=== PATIENT | female | born 1945 | race Caucasian/White ===

== ENCOUNTER 2019-02-14 16:00 | Inpatient (IN) | payer MEDICARE ==
[2019-02-14] MEDS ORDERED: SODIUM CHLORIDE 0.9% 500 ML 500 ML IV STA (16:24)
[2019-02-14 16:52] LABS: HCT 47.1 % (34.0-46.0); HGB 14.4 gm/dL (11.4-16.0); Hypochromasia Moderate; MCH 36.8 pg (25.0-35.0); MCHC 30.7 g/dL (31.0-37.0); Macrocytosis Marked; Mean Platelet Volume 8.3; Platelet Count 198 k/uL (150-450); RBC 3.92 m/uL (3.80-5.40); RDW 15.9 % (11.5-15.5); WBC 9.8 k/uL (3.8-10.6)
[2019-02-14] MEDS ORDERED: DILTIAZEM DRIP BOLUS FROM BAG 1 MG SOLN IV ONE (16:57)
[2019-02-14] MEDS ORDERED: HEPARIN SODIUM,PORCINE 5,000 UNIT/ML 1 ML VIAL IV ONE (16:58)
[2019-02-14 17:02] LABS: ALT 48 U/L (9-52); AST 51 U/L (14-36); African American GFR (CKD) >90 (>60 ml/min/1.73 sqM); Albumin 4.4 g/dL (3.5-5.0); Alkaline Phosphatase 92 U/L (38-126); Anion Gap 11 mmol/L; Blood Urea Nitrogen 30 mg/dL (7-17); Calcium 9.3 mg/dL (8.4-10.2); Carbon Dioxide 29 mmol/L (22-30); Chloride 103 mmol/L (98-107); Glucose 158 mg/dL (74-99); Magnesium 1.8 mg/dL (1.6-2.3); Potassium 4.6 mmol/L (3.5-5.1); Sodium 143 mmol/L (137-145); Total Bilirubin 2.5 mg/dL (0.2-1.3); Total Protein 7.6 g/dL (6.3-8.2)
--- NOTE | 2019-02-14 17:02 | ED ---
General Adult HPI - General Chief complaint: Shortness of Breath Stated complaint: Diff Breathing Time Seen by Provider: 02/14/19 16:07 Source: patient, EMS Mode of arrival: EMS Limitations: physical limitation - History of Present Illness Initial comments: Dictation was produced using [employer] dictation software. please excuse any gramm atical, word or spelling errors. Chief Complaint: Patient is 73-year-old female with no significant past medical history presents with dyspnea and palpitations. History of Present Illness: 73-year-old female. She presents today with multiple days of dyspnea. Patient states her symptoms began 3-4 weeks ago. States that she would have increasing duration and symptoms of dyspnea and p alpitations. Patient denies any history of atrial fibrillation. Patient has been noncompliant with her medications. She is supposed to be on what sounds like a rate controlling medication to prevent her heart from working hard. Patient states that her symptoms are worse with exertion. Patient denies and a coagulation medication use. 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 Patient denies any focal neurologic deficits. She does report some mild chest discomfort especially during episodes of these palpitations. Patient denies any blurry chest pain. Denies a history of blood clots. The ROS documented in this emergency department record has been reviewed and confirmed by me. Those systems with pertinent positive or negative responses have been documented in the HPI. All other systems are other negative and/or noncontributory. PHYSICAL EXAM: General Impression: Alert and oriented x3, not in acute distress HEENT: Normocephalic atraumatic, extra-ocular movements intact, pupils equal and reactive to light bilaterally, dry mucous membranes Cardiovascular: Tachycardic, irregularly irregular Chest: Lungs clear to auscultation bilaterally, no rhonchi, no wheeze, no rales Abdomen: Bowel sounds present, abdomen soft, non-tender, non-distended, no organomegaly Musculoskeletal: Pulses present and equal in all extremities, no peripheral edema Motor: no focal deficits noted Neurological: CN II-XII grossly intact, no focal motor or sensory deficits noted Skin: Intact with no visualized rashes Psych: Normal affect and mood ED course:-year-old female presents with chief complaint of shortness of breath and palpitations. EKG was performed immediately showing atrial fibrillation with rapid ventricular rate. Patient has any history of atrial fibrillation she does however report prescription for what is likely a beta dk or other rate controlling medications. Vital signs upon arrival shows heart rate of 147, rest of vital signs within acceptable limits. Patient appears mildly dyspneic. She denies any history of blood clots. Patient denies any symptoms to suggest pulmonary embolus. Chart review was performed showing no previous documentation or nodes. Laboratory evaluation obtained. Cardizem bolus and infusion was ordered for rate control. Patient started on heparin. Laboratory evaluation obtained. CBC is grossly unremarkable. Metabolic panel is negative. Coag panel is unremarkable. Patient is slight troponin elevation of 0.028. Chest x-ray shows mild congestive heart failure with small pleural effusions. Patient's symptomatology is secondary to atrial fibrillation with RVR. Patient reevaluated after Cardizem drip and bolus with improvement of heart rate. Patient's blood pressures are within acceptable limits. She is improved while being on Cardizem. She'll be admitted to cardiac telemetry. Discussed patient case with Dr. Randy koroma so care for this patient. Cardiology to be a consultation. EKG interpretation: Ventricular rate once 65, atrial fibrillation with rapid ventricular response, QS 100, QTC 513. No GA prolongation, no QTC prolongation, no ST or T-wave changes noted. No old EKG for comparison. Overall, this EKG is unremarkable - Related Data Home Medications Medication Instructions Recorded Confirmed Acetaminophen [Tylenol Arthritis] 650 mg PO BID PRN 02/14/19 02/14/19 Aspirin EC [Ecotrin Low Dose] 81 mg PO DAILY 02/14/19 02/14/19 Calcium Carbonate [Calcium] 600 mg PO BID 02/14/19 02/14/19 Multivit with Calcium,Iron,Min 1 tab PO DAILY 02/14/19 02/14/19 [Women's Multivitamin] Allergies Allergy/AdvReac Type Severity Reaction Status Date / Time No Known Allergies Allergy Unverified 02/14/19 16:31 Review of Systems ROS Statement: Those systems with pertinent positive or pertinent negative responses have been documented in the HPI. ROS Other: All systems not noted in ROS Statement are negative. 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] Respiratory 24 24 18 Rate Blood Pressure 115/82 104/69 O2 Sat by Pulse 97 97 Oximetry Medical Decision Making - Lab Data Result diagrams: 02/14/19 16:21 02/14/19 16:21 Lab Results 02/14/19 02/14/19 02/14/19 Range/Units 16:21 16:21 16:21 WBC 9.8 (3.8-10.6) k/uL RBC 3.92 (3.80-5.40) m/uL Hgb 14.4 (11.4-16.0) gm/dL Hct 47.1 H (34.0-46.0) % MCV 120.0 H (80.0-100.0) fL MCH 36.8 H (25.0-35.0) pg MCHC 30.7 L (31.0-37.0) g/dL RDW 15.9 H (11.5-15.5) % Plt Count 198 (150-450) k/uL Neutrophils % (Manual) 78 % Lymphocytes % (Manual) 12 % Monocytes % (Manual) 10 % Neutrophils # (Manual) 7.64 (1.3-7.7) k/uL Lymphocytes # (Manual) 1.18 (1.0-4.8) k/uL Monocytes # (Manual) 0.98 (0-1.0) k/uL Nucleated RBCs 0 (0-0) /100 WBC Manual Slide Review Performed Hypochromasia Moderate Macrocytosis Marked A PT (9.0-12.0) sec INR (<1.2) APTT (22.0-30.0) sec Sodium 143 (137-145) mmol/L Potassium 4.6 (3.5-5.1) mmol/L Chloride 103 (98-107) mmol/L Carbon Dioxide 29 (22-30) mmol/L Anion Gap 11 mmol/L BUN 30 H (7-17) mg/dL Creatinine 0.58 (0.52-1.04) mg/dL Est GFR (CKD-EPI)AfAm >90 (>60 ml/min/1.73 sqM) Est GFR (CKD-EPI)NonAf >90 (>60 ml/min/1.73 sqM) Glucose 158 H (74-99) mg/dL Calcium 9.3 (8.4-10.2) mg/dL Magnesium 1.8 (1.6-2.3) mg/dL Total Bilirubin 2.5 H (0.2-1.3) mg/dL AST 51 H (14-36) U/L ALT 48 (9-52) U/L Alkaline Phosphatase 92 (38-126) U/L Troponin I 0.028 (0.000-0.034) ng/mL Total Protein 7.6 (6.3-8.2) g/dL Albumin 4.4 (3.5-5.0) g/dL TSH 0.916 (0.465-4.680) mIU/L 02/14/19 Range/Units 18:02 WBC (3.8-10.6) k/uL RBC (3.80-5.40) m/uL Hgb (11.4-16.0) gm/dL Hct (34.0-46.0) % MCV (80.0-100.0) fL MCH (25.0-35.0) pg MCHC (31.0-37.0) g/dL RDW (11.5-15.5) % Plt Count (150-450) k/uL Neutrophils % (Manual) % Lymphocytes % (Manual) % Monocytes % (Manual) % Neutrophils # (Manual) (1.3-7.7) k/uL Lymphocytes # (Manual) (1.0-4.8) k/uL Monocytes # (Manual) (0-1.0) k/uL Nucleated RBCs (0-0) /100 WBC Manual Slide Review Hypochromasia Macrocytosis PT 13.1 H (9.0-12.0) sec INR 1.3 H (<1.2) APTT 47.2 H (22.0-30.0) sec Sodium (137-145) mmol/L Potassium (3.5-5.1) mmol/L Chloride (98-107) mmol/L Carbon Dioxide (22-30) mmol/L Anion Gap mmol/L BUN (7-17) mg/dL Creatinine (0.52-1.04) mg/dL Est GFR (CKD-EPI)AfAm (>60 ml/min/1.73 sqM) Est GFR (CKD-EPI)NonAf (>60 ml/min/1.73 sqM) Glucose (74-99) mg/dL Calcium (8.4-10.2) mg/dL Magnesium (1.6-2.3) mg/dL Total Bilirubin (0.2-1.3) mg/dL AST (14-36) U/L ALT (9-52) U/L Alkaline Phosphatase (38-126) U/L Troponin I (0.000-0.034) ng/mL Total Protein (6.3-8.2) g/dL Albumin (3.5-5.0) g/dL TSH (0.465-4.680) mIU/L Disposition Clinical Impression: Atrial fibrillation with RVR Disposition: ADMITTED IP TO THIS HOSP Condition: Fair Referrals: Mariah Zendejas MD [Primary Care Provider] - 1-2 days Decision Time: 19:03
[2019-02-14 17:16] LABS: Lymphocytes # (M) 1.18 k/uL (1.0-4.8); Monocytes # (M) 0.98 k/uL (0-1.0); Neutrophils # (M) 7.64 k/uL (1.3-7.7); Neutrophils % (M) 78 %; Nucleated Red Blood Cells 0 /100 WBC (0-0); Total Cells Counted 100
[2019-02-14] MEDS: DILTIAZEM 125 MG in SODIUM CHLORIDE 0.9% 100 ML IV SCH (17:40)
[2019-02-14] MEDS: HEPARIN SOD,PORK IN 0.45% NACL 25,000 UNIT in 0.45% NACL 1 250ML.BAG IV SCH (17:46)
--- NOTE | 2019-02-14 17:53 | XR ---
EXAMINATION TYPE: XR chest 2V DATE OF EXAM: 02/14/2019 COMPARISON: NONE HISTORY: Dysrhythmia TECHNIQUE: Frontal and lateral views of the chest are obtained. FINDINGS: There is some blunting of the costophrenic angles. Heart is enlarged. There is some pulmon sintia vascular congestion. There are chest leads. IMPRESSION: There is probably Mild congestive heart failure. Small pleural effusions.
[2019-02-14] MEDS ORDERED: ASPIRIN 81 MG PO STA (18:07)
[2019-02-14 18:42] LABS: INR 1.3 (<1.2); Partial Thromboplastin Time 47.2 sec (22.0-30.0); Prothrombin Time 13.1 sec (9.0-12.0)
[2019-02-14] MEDS ORDERED: ACETAMINOPHEN TAB 325 MG TAB PO PRN (19:03)
[2019-02-14] MEDS ORDERED: NALOXONE 0.4 MG/ML 1 ML VIAL IV PRN (19:03)
[2019-02-14] MEDS ORDERED: HYDROcodone/APAP 5-325MG 1 EACH TAB PO PRN (19:03)
[2019-02-14] MEDS ORDERED: ONDANSETRON 4 MG/2 ML VIAL IVP PRN (19:03)
[2019-02-14] MEDS ORDERED: SODIUM CHLORIDE 0.9% 1,000 ML IV SCH (19:15)
[2019-02-14 20:13] LABS: Appearance,Urine Cloudy (Clear); Bacteria,Urine Many /hpf; Bilirubin,Urine 1+ (Negative); Blood,Urine Negative (Negative); Color,Urine Orange; Glucose,Urine (UA) Negative (Negative); Ketones,Urine 1+ (Negative); Leukocyte Esterase,Urine Small (Negative); Mucus,Urine Few /hpf; Nitrite,Urine Positive (Negative); PH, Urine 5.5 (5.0-8.0); Protein,Urine 1+ (Negative); Specific Gravity,Urine 1.029 (1.001-1.035); Squamous Epithelial Cell,Urine 5 /hpf (0-4)
[2019-02-14] MEDS ORDERED: NON-FORMULARY DRUG (Acetaminophen [Tylenol Arthritis] 650 MG) PO PRN (21:52)
[2019-02-14] MEDS ORDERED: TEMAZEPAM 15 MG CAP PO PRN (21:53)
[2019-02-14] MEDS: ALPRAZolam 0.25 MG TAB PO PRN (22:15)
[2019-02-14] MEDS: FUROSEMIDE 10 MG/ML 4 ML VIAL IV SCH (22:24)
[2019-02-15] MEDS: FUROSEMIDE 10 MG/ML 4 ML VIAL IV SCH ×4 (00:29→23:37)
[2019-02-15] MEDS: HEPARIN SODIUM,PORCINE 5,000 UNIT/ML 1 ML VIAL IV PRN ×4 (01:54→23:38)
[2019-02-15] MEDS: DILTIAZEM 125 MG in SODIUM CHLORIDE 0.9% 100 ML IV SCH ×2 (02:14→09:21)
--- NOTE | 2019-02-15 06:00 | HP ---
HISTORY AND PHYSICAL DATE OF SERVICE: 02/14/2019 CHIEF COMPLAINT: Shortness of breath and palpitation. HISTORY OF PRESENT ILLNESS: This 73-year-old woman with a past medical history of multiple medical problems including DJD being followed by Dr. Mariah Zendejas in the outpatient setting was complaining of shortness of breath today. The patient's symptoms began about 3 to 4 weeks ago. The patient also has some palpitations. The patient did not have any history of atrial fibrillation, but the patient had episodes of apparent stroke, which the patient describes as a palpitations and some extreme shortness of breath or sudden onset which lasted overnight a few weeks ago. Otherwise, the patient was apparently not very compliant with the medications and the patient was seen by Cardiology about 2 years ago and apparently because medicines made her sick and the patient stopped the medication. Otherwise, there is no history of any fever, rigors. No history of headache, loss of consciousness or seizures. EKG showed atrial fibrillation with fast ventricular rate. Cardizem was initiated, Patient admitted for further evaluation and treatment. PAST MEDICAL HISTORY: History of atrial fibrillation, history of DJD. MEDICATIONS: Home medications prior to admission include: 1. Multivitamin 1 p.o. daily. 2. Calcium 600 mg p.o. b.i.d. 3. Ecotrin 81 mg daily. 4. Tylenol 650 mg p.o. b.i.d. ALLERGIES: Allergies are none. FAMILY HISTORY: No history of heart disease or strokes in the family. SOCIAL HISTORY: No history of current smoking or alcohol intake. REVIEW OF SYSTEMS: ENT: Diminished hearing and diminished vision. CARDIOVASCULAR SYSTEM: As mentioned earlier. RESPIRATORY SYSTEM: As mentioned earlier. GI: No nausea. : No dysuria. NERVOUS SYSTEM: No numbness or weakness. ALLERGY/IMMUNOLOGY: No asthma. MUSCULOSKELETAL: As mentioned earlier. HEMATOLOGY/ONCOLOGY: No history of anemia. ENDOCRINE: No history of diabetes or hypothyroidism. CONSTITUTIONAL: As mentioned earlier. DERMATOLOGY: Negative. RHEUMATOLOGY: Negative. PSYCHIATRY: As mentioned earlier. PHYSICAL EXAMINATION: The patient is alert and oriented x3. Pulse is 133, irregular, tachycardic, respiration 18, temperature normal, pulse ox 97% on 4 L nasal cannula and blood pressure is 104/69. HEENT: Conjunctivae normal. Oral mucosa moist. NECK: No jugular venous distention. CARDIOVASCULAR: S1, S2, tachycardia, irregular. RESPIRATORY: Breath sounds diminished at the bases. Scattered rhonchi and crackles. Breathing efforts increased. ABDOMEN: Soft, nontender. No mass palpable. Obese. LEGS: No edema, no swelling. NERVOUS SYSTEM: Higher function as mentioned earlier. Moves all 4 limbs. No focal motor deficits. LYMPHATICS: No lymphadenopathy of the neck, axillae or groin. SKIN: No ulcer, rash or bleeding. JOINTS: No active deforming arthropathy. LABS: WBC 9.8, hemoglobin 14.4, MCV 120, Sodium 143, potassium 4.6. Glucose 158. Bilirubin is 2.5, AST is 51. UA is possible UTI. ASSESSMENT: 1. Atrial fibrillation with fast ventricular rate. 2. Congestive heart failure acute exacerbation, ejection fraction unknown. 3. History of noncompliance. 4. Macrocytosis. 5. Increased AST. 6. Increased total bilirubin. 7. Possible urinary tract infection. 8. Obesity with body mass index of 48.4. 9. History of degenerative joint disease. RECOMMENDATIONS AND DISCUSSION: This 73-year-old woman presented with multiple complex medical issues. Will monitor the patient closely. Continue the current medications. Continue symptomatic treatment. Will recommend continue with Cardizem drip. I would also recommend IV Lasix for diuresis. The 2D echo with Doppler. Cardiology consultation. Importance of compliance is stressed and a NT proBNP also will be checked. Troponin 0.028. The initial EKG showed atrial fibrillation with fast ventricular rate also. Obtain old records at this time. Overall prognosis guarded because of multiple complex medical issues. Further recommendations to follow. I discussed with the patient and family, understands and agrees. A copy of dictation forwarded to Dr. Mariah Zendejas who is the primary physician. MMODL / IJN: [id number] / MTDD
[2019-02-15] MEDS: PANTOPRAZOLE 40 MG TABLET PO SCH (06:46)
[2019-02-15] MEDS: ASPIRIN 81 MG PO SCH (08:05)
[2019-02-15] MEDS: CALCIUM CARBONATE 500 MG CHEWABLE PO SCH ×2 (08:05→21:35)
[2019-02-15] MEDS: MULTIVITAMINS, THERA 1 EACH TAB PO SCH (08:05)
--- NOTE | 2019-02-15 08:15 | XR ---
EXAMINATION TYPE: XR chest 1V portable DATE OF EXAM: 02/15/2019 COMPARISON: Prior chest x-ray 02/14/2019 HISTORY: Dyspnea and wheezing TECHNIQUE: Single frontal view of the chest is obtained. FINDINGS: The heart is enlarged. Aorta is dense. No pneumothorax or pleural effusion. Patient is rot ated, technique is apical lordotic. There is some thickening of the minor fissure. Central vascularit y appears prominently. IMPRESSION: There may be a component of pulmonary venous hypertension and interstitial edema. Marked cardiomegaly, follow-up is recommended.
[2019-02-15] MEDS ORDERED: METOPROLOL TARTRATE 25 MG TAB PO SCH (09:00)
[2019-02-15] MEDS: MAGNESIUM OXIDE 400 MG TAB PO SCH (09:18)
[2019-02-15 09:22] LABS: Anisocytosis Slight; Basophils % (A) 0 %; Eosinophils # (A) 0.1 k/uL (0-0.7); Eosinophils % (A) 1 %; HCT 44.1 % (34.0-46.0); HGB 13.6 gm/dL (11.4-16.0); Hypochromasia Marked; Lymphocytes # (A) 0.8 k/uL (1.0-4.8); Lymphocytes % (A) 10 %; MCH 37.6 pg (25.0-35.0); MCHC 30.9 g/dL (31.0-37.0); MCV 121.9 fL (80.0-100.0); Macrocytosis Marked; Mean Platelet Volume 9.9; Monocytes # (A) 0.6 k/uL (0-1.0); Monocytes % (A) 8 %; Neutrophils # (A) 5.7 k/uL (1.3-7.7); Neutrophils % (A) 78 %; Platelet Count 134 k/uL (150-450); RBC 3.62 m/uL (3.80-5.40); RDW 16.4 % (11.5-15.5); WBC 7.3 k/uL (3.8-10.6)
[2019-02-15 10:17] LABS: Hypersegmented Neutrophils Present; Stomatocytes Present
[2019-02-15] MEDS: METOPROLOL TARTRATE 50 MG TAB PO SCH (10:42)
--- NOTE | 2019-02-15 11:15 | ECHOF ---
Referral Reason:chf MEASUREMENTS -------- HEIGHT: 167.6 cm WEIGHT: 142.0 kg BP: 114/66 RVIDd: 3.3 cm (< 3.3) IVSd: 1.6 cm (0.6 - 1.1) LVIDd: 5.1 cm (3.9 - 5.3) LVPWd: 1.5 cm (0.6 - 1.1) IVSs: 2.0 cm LVIDs: 3.9 cm LVPWs: 1.5 cm LA Diam: 4.6 cm (2.7 - 3.8) LAESV Index (A-L): 39.50 ml/m Ao Diam: 3.2 cm (2.0 - 3.7) MV EXCURSION: 21.020 mm (> 18.000) MV EF SLOPE: 127 mm/s (70 - 150) EPSS: 0.8 cm AV maxP.91 mmHg AV meanP.71 mmHg RAP: 15.00 mmHg RVSP: 40.53 mmHg FINDINGS -------- Atrial fibrillation. This was a technically adequate study. The left ventricular size is normal. There is moderate concentric left ventricular hypertrophy. O verall left ventricular systolic function is moderate-severely impaired with, an EF between 30 - 35 % . The right ventricle is mildly enlarged. LA is moderately dilated 34-39 ml/m2 The right atrium is normal in size. Interatrial and interventricular septum intact. There is mild aortic valve sclerosis. There is mild aortic regurgitation. There is mild aortic st enosis present. Peak/mean gradient across the Aortic Valve is 34.91mmHg / 19.71mmHg. The mitral valve leaflets are mildly thickened. Mild mitral annular calcification present. Mild m itral regurgitation is present. Mild tricuspid regurgitation present. There is mild pulmonary hypertension. The right ventricular systolic pressure, as measured by Doppler, is 40.53mmHg. The pulmonic valve was not well visualized. The aortic root size is normal. The inferior vena cava is dilated with no significant inspiratory collapse which is consistent estima [place] right atrial pressure of >15 mmHg. There is no pericardial effusion. CONCLUSIONS -------- 1. Atrial fibrillation. 2. This was a technically adequate study. 3. The left ventricular size is normal. 4. There is moderate concentric left ventricular hypertrophy. 5. Overall left ventricular systolic function is moderate-severely impaired with, an EF between 30 - 35 %. 6. The right ventricle is mildly enlarged. 7. LA is moderately dilated 34-39 ml/m2 8. The right atrium is normal in size. 9. Interatrial and interventricular septum intact. 10. There is mild aortic valve sclerosis. 11. There is mild aortic regurgitation. 12. There is mild aortic stenosis present. 13. Peak/mean gradient across the Aortic Valve is 34.91mmHg / 19.71mmHg. 14. The mitral valve leaflets are mildly thickened. 15. Mild mitral annular calcification present. 16. Mild mitral regurgitation is present. 17. Mild tricuspid regurgitation present. 18. There is mild pulmonary hypertension. 19. The right ventricular systolic pressure, as measured by Doppler, is 40.53mmHg. 20. The pulmonic valve was not well visualized. 21. The aortic root size is normal. 22. The inferior vena cava is dilated with no significant inspiratory collapse which is consistent es timated right atrial pressure of >15 mmHg. 23. There is no pericardial effusion. [employer]OR[employer] ATTENDANT: Michelle Gutierrez RDCS
--- NOTE | 2019-02-15 12:01 | P.CRDCN ---
History of Present Illness Consult date: 02/15/19 Reason for Consult (text): A. fib RVR Chief complaint: A. fib RVR History of present illness: HISTORY OF PRESENT ILLNESS AND PLAN: This is a [73]-year-old [female] with history of obesity, history of lap band insertion/removal, DJD and unspecified murmur. Patient presents in the emergency department with complaints of [shortness of breath with palpitations starting 3-4 weeks ago. Patient denies history of atrial fibrillation. Patient may be a poor historian. Patient states she used to follow with Dr. Garcia in office last visit 2015, has not seen him in quite a few years. Patient sitting comfortably in chair with no current complaints of chest pain, chest pressure or palpitations. Patient does complain of shortness of breath and wheezing. Most recent echo 2015 with ejection fraction of 60%, WNL. Currently atrial fibrillation on monitor controlled rate, 80. Patient currently on IV heparin and IV Cardizem and IV Lasix 40 mg every 8 hours. Patient currently asymptomatic. ]. SIGNIFICANT PAST MEDICAL HISTORY: [Obesity, history of lap and insertion/removal, DJD and unspecified murmur.] PAST SURGICAL HISTORY: See list. EKG shows [atrial fibrillation], heart rate [1:15] bpm. Troponins negative x [1]. 0.028 SIGNIFICANT LABORATORY VALUES: [CBC, WNL. BMP, WNL. Positive U/A. TSH 0.916. Magnesium 1.8.]. Chest x-ray [mild pulmonary edema, small bilateral pleural effusions]. Most recent echo dated = [2016] indicates [EF 60%, WNL]. REVIEW OF SYSTEMS: CONSTITUTIONAL: [Denies fever. Denies chills.] EYES: Denies blurred vision. [Denies blurred vision or vision changes. Denies eye pain.] EARS, NOSE, MOUTH & THROAT: [Denies headache. Denies sore throat. Denies ear pain Denies hemoptysis.] CARDIOVASCULAR: [Denies chest pain. C/O shortness of breath. Denies orthopnea. Denies PND. Denies palpitations.] RESPIRATORY: [Denies cough. C/O shortness of breath/ wheeze. ] GASTROINTESTINAL: [Denies abdominal pain or distention. Denies diarrhea. Denies constipation. Denies nausea. Denies vomiting.] MUSCULOSKELETAL: [Denies myalgias.] INTEGUMENTARY: [Denies pruitis. Denies rash.] ENDOCRINE: [Denies fatigue. Denies weight change. Denies polydipsia. Denies polyurina Denies heat/cold intolerance.] GENITOURINARY:[ Denies burning, hematuria or urgency with micturation.] HEMATOLOGIC: [Denies history of anemia. Denies bleeding.] NEUROLOGIC: [Denies numbness. Denies tingling. Denies weakness.] PSYCHIATRIC: [Denies anxiety. Denies depression.] PHYSICAL EXAM: VITAL SIGNS: WNL GENERAL: Obese. Well developed, in no acute distress. HEENT: Head is atraumatic, normocephalic. Pupils are equal, round. Extra ocular movements intact. Mucous membranes moist. Neck supple. No JVD. No carotid bruit. No thyromegaly. LUNGS: Bilateral wheezes and diminished air movement. NO rales or rhonchi. No chest wall tenderness on palpation or with deep breathing. HEART: Irregular rhythm, HR 115. No rubs or gallops. S1 and S2 heard. No murmur. ABDOMEN: Abdominal exam, WNL. Bowel sounds x4 quads. Soft, non-tender, without masses, organomegaly, or abdominal aorta enlargement. EXTREMITIES/VASCULAR: Extremities have easily palpable radial, femoral, dorsalis pedis and posterior tibial pulses. No cyanosis, calf tenderness. No BLE edema. NEUROLOGIC: Patient is awake, alert and oriented x3. No focal neurologic abnormalities. FINAL IMPRESSION: 1. [Shortness of breath and bilateral wheeze - possible COPD exacerbation]. 2. [Atrial fibrillation RVR, HR 115]. 3. [Hypo-magnesium]. 4. [CHF with pulmonary edema]. 5. [Obesity]. PLAN: [Patient to echocardiogram. Start metoprolol tartrate 50 mg twice a day. Start magnesium oxide 400 mg every day. Continue IV Lasix/IV heparin. Decrease IV Cardizem to 10 mL's per hour. Consider folate/B12 level with MCV elevation. We'll follow along. Consider pulmonary consult. Thank you kindly for this consult.] Nurse Practitioner note has been reviewed by the Physician. Signing provider agrees with the documented findings, assessment and plan of care. Past Medical History Additional Past Medical History / Comment(s): Lap band procedure (reversed) History of Any Multi-Drug Resistant Organisms: None Reported Additional Past Surgical History / Comment(s): lap band Past Anesthesia/Blood Transfusion Reactions: No Reported Reaction Past Psychological History: No Psychological Hx Reported Smoking Status: Never smoker Past Alcohol Use History: None Reported Past Drug Use History: None Reported Medications and Allergies Home Medications Medication Instructions Recorded Confirmed Type Acetaminophen [Tylenol Arthritis] 650 mg PO BID PRN 02/14/19 02/14/19 History Aspirin EC [Ecotrin Low Dose] 81 mg PO DAILY 02/14/19 02/14/19 History Calcium Carbonate [Calcium] 600 mg PO BID 02/14/19 02/14/19 History Multivit with Calcium,Iron,Min 1 tab PO DAILY 02/14/19 02/14/19 History [Women's Multivitamin] Allergies Allergy/AdvReac Type Severity Reaction Status Date / Time No Known Allergies Allergy Unverified 02/14/19 16:31 Physical Exam Vitals: Vital Signs Temp Pulse Pulse Resp BP BP Pulse Ox 02/15/19 08:00 99.1 F 106 H 20 123/86 95 02/15/19 04:00 96.7 F L 80 16 114/66 98 02/15/19 00:00 98.2 F 122 H 18 100/77 96 02/14/19 20:09 130 H 16 109/85 99 02/14/19 20:00 99 F 132 H 20 117/83 96 02/14/19 18:28 133 H 18 104/69 97 02/14/19 17:11 152 H 24 02/14/19 16:23 98.8 F 147 H 24 115/82 97 Intake and Output 02/14/19 02/15/19 02/15/19 22:59 06:59 14:59 Intake Total 410.75 194.35 212.145 Output Total 300 200 Balance 110.75 -5.65 212.145 Intake: Intake, IV Titration 10.75 194.35 212.145 Amount Diltiazem 125 mg In 10.75 112 106.75 Sodium Chloride 0.9% 100 ml @ 5 MG/HR 5 mls/hr IV .Q24H [facility] Rx#:[id number] Heparin Sod,Pork in 0.45% 82.35 105.395 NaCl 25,000 unit In 0.45 % NaCl 1 250ml.bag @ 7.35 UNITS/KG/HR 10.002 mls/ hr IV .Q24H [facility] Rx#: [id number] Oral 400 Output: Urine 300 200 Other: # Voids 3 Weight 136.078 kg 142 kg Results 02/15/19 08:25 02/14/19 16:21 Cardiac Enzymes 02/14/19 02/14/19 Range/Units 16:21 16:21 AST 51 H (14-36) U/L Troponin I 0.028 (0.000-0.034) ng/mL Coagulation 02/14/19 02/15/19 02/15/19 Range/Units 18:02 01:07 08:25 PT 13.1 H (9.0-12.0) sec APTT 47.2 H 36.1 H 24.9 (22.0-30.0) sec CBC 02/14/19 02/15/19 Range/Units 16:21 08:25 WBC 9.8 7.3 (3.8-10.6) k/uL RBC 3.92 3.62 L (3.80-5.40) m/uL Hgb 14.4 13.6 (11.4-16.0) gm/dL Hct 47.1 H 44.1 (34.0-46.0) % Plt Count 198 134 L (150-450) k/uL Comprehensive Metabolic Panel 02/14/19 Range/Units 16:21 Sodium 143 (137-145) mmol/L Potassium 4.6 (3.5-5.1) mmol/L Chloride 103 (98-107) mmol/L Carbon Dioxide 29 (22-30) mmol/L BUN 30 H (7-17) mg/dL Creatinine 0.58 (0.52-1.04) mg/dL Glucose 158 H (74-99) mg/dL Calcium 9.3 (8.4-10.2) mg/dL AST 51 H (14-36) U/L ALT 48 (9-52) U/L Alkaline Phosphatase 92 (38-126) U/L Total Protein 7.6 (6.3-8.2) g/dL Albumin 4.4 (3.5-5.0) g/dL Current Medications Generic Name Dose Route Start Last Admin Trade Name Freq PRN Reason Stop Dose Admin Acetaminophen 650 mg 02/14/19 19:03 Tylenol Tab PO Q6HR PRN Mild Pain or Fever > 100.5 Hydrocodone Bitart/Acetaminophen 1 each 02/14/19 19:03 02/14/19 21:12 Magness 5-325 PO 1 each Q4HR PRN Administration Moderate Pain Alprazolam 0.25 mg 02/14/19 21:53 02/14/19 22:15 Xanax PO 0.25 mg TID PRN Administration Anxiety Aspirin 81 mg 02/15/19 09:00 02/15/19 08:05 Aspirin PO 81 mg DAILY [facility] Administration Calcium Carbonate/Glycine 500 mg 02/15/19 09:00 02/15/19 08:05 Tums PO 500 mg BID [facility] Administration Furosemide 40 mg 02/14/19 21:52 02/15/19 08:05 Lasix IV 40 mg Q8HR [facility] Administration Heparin Sodium (Porcine) 0 unit 02/14/19 16:58 02/15/19 09:31 Heparin IV 4,000 unit PER PROTOCOL PRN Administration Low PTT Protocol Diltiazem HCl 125 mg/ Sodium 125 mls @ 10 mls/hr 02/14/19 17:00 02/15/19 09:21 Chloride IV 15 mg/hr .[id number] [facility] 15 mls/hr Administration 10 MG/HR Heparin Sodium/Sodium Chloride 250 mls @ 10.002 mls/hr 02/14/19 17:00 02/15/19 09:29 25,000 unit/ Sodium Chloride IV 13.35 units/kg/hr .Q24H [facility] 18.166 mls/hr Titration Protocol 7.35 UNITS/KG/HR Magnesium Oxide 400 mg 02/15/19 09:15 02/15/19 09:18 Mag-Ox PO 400 mg DAILY [facility] Administration Metoprolol Tartrate 50 mg 02/15/19 10:30 02/15/19 10:42 Lopressor PO 50 mg BID [facility] Administration Multivitamins 1 each 02/15/19 09:00 02/15/19 08:05 Theragran PO 1 each DAILY [facility] Administration Naloxone HCl 0.2 mg 02/14/19 19:03 Narcan IV Q2M PRN Opioid Reversal Ondansetron HCl 4 mg 02/14/19 19:03 Zofran IVP Q8HR PRN Nausea And Vomiting Pantoprazole Sodium 40 mg 02/15/19 07:30 02/15/19 06:46 Protonix PO 40 mg [id number] [facility] Administration Temazepam 15 mg 02/14/19 21:53 Restoril PO HS PRN Insomnia Intake and Output 02/14/19 02/15/19 02/15/19 22:59 06:59 14:59 Intake Total 410.75 194.35 212.145 Output Total 300 200 Balance 110.75 -5.65 212.145 Intake: Intake, IV Titration 10.75 194.35 212.145 Amount Diltiazem 125 mg In 10.75 112 106.75 Sodium Chloride 0.9% 100 ml @ 5 MG/HR 5 mls/hr IV .Q24H [facility] Rx#:[id number] Heparin Sod,Pork in 0.45% 82.35 105.395 NaCl 25,000 unit In 0.45 % NaCl 1 250ml.bag @ 7.35 UNITS/KG/HR 10.002 mls/ hr IV .Q24H [facility] Rx#: [id number] Oral 400 Output: Urine 300 200 Other: # Voids 3 Weight 136.078 kg 142 kg 02/15/19 08:25 02/14/19 16:21 - EKG Interpretation EKG shows: atrial fibrillation
[2019-02-15] MEDS: ALPRAZolam 0.25 MG TAB PO PRN ×2 (13:15→23:07)
[2019-02-15 13:31] LABS: Calcium 8.8 mg/dL (8.4-10.2); Potassium 4.7 mmol/L (3.5-5.1)
[2019-02-15] MEDS: HEPARIN SOD,PORK IN 0.45% NACL 25,000 UNIT in 0.45% NACL 1 250ML.BAG IV SCH ×2 (17:45→23:52)
[2019-02-15] MEDS: METOPROLOL TARTRATE 25 MG TAB PO SCH (21:34)
[2019-02-15] MEDS ORDERED: METOPROLOL TARTRATE 25 MG TAB PO STA (22:28)
--- NOTE | 2019-02-15 22:40 | PN ---
PROGRESS NOTE DATE OF SERVICE: 02/15/2019. This 73-year-old woman who was admitted with atrial fibrillation with fast ventricular rate also had CHF acute exacerbation. The patient is still having shortness of breath. A 2D echo with Doppler was done today which showed ejection fraction 30 to 35% and multiple valvular abnormalities also noted. Cardiology following the patient. Patient being diuresed at this time. The most recent chest x-ray done today which was personally reviewed by me showed continued interstitial edema suggestive of CHF. PAST MEDICAL HISTORY: Reviewed. REVIEW OF SYSTEMS: Cardiovascular system: As mentioned earlier. RESPIRATORY: As mentioned earlier. GI no nausea or vomiting. : No dysuria. CENTRAL NERVOUS SYSTEM: No numbness, weakness. CURRENT MEDICATIONS: Reviewed and include: 1. Tylenol 650 q.6 p.r.n. 2. [place] 5 mg q.4 p.r.n. 3. Xanax 0.5 t.i.d. 4. Aspirin 81 mg. 5. Tums. 6. Cardizem drip. 7. Lasix. 8. Heparin. 9. Magnesium oxide. 10.Lopressor. 11.Multivitamins. 12.Narcan. 13.Zofran. 14.Protonix. 15.Restoril. PHYSICAL EXAM: Patient is alert, oriented x3. Pulse 73, blood pressure 91/64, respiration 18, temperature 98.1, pulse ox 94% on 4 L. HEENT: Conjunctivae normal. NECK: No jugular venous distention. CARDIOVASCULAR systems: S1, S2 muffled. Ejection systolic murmur. RESPIRATION: Breath sounds diminished in the bases. A few scattered rhonchi and crackles. Breathing efforts are markedly increased. ABDOMEN: Soft, obese, nontender. LEGS: Minimal edema. NERVOUS SYSTEM: Higher functions as mentioned earlier. Moves all four limbs. No focal deficits. LYMPHATICS: No lymph nodes palpable in the neck, axillae or groin. SKIN: No ulcer, rashes or bleeding. JOINTS: No active deforming arthropathy. LABS: WBC 7.3, MCV 121.9, hemoglobin is 13.6. Other labs are noted. UA noted. ASSESSMENT: 1. Atrial fibrillation with fast ventricular rate. 2. Congestive heart failure acute exacerbation with acute on chronic systolic dysfunction, ejection fraction 30 to 35%. 3. Macrocytosis. 4. Increased AST. 5. Increased total bilirubin. 6. Possible urinary tract infection, present on admission. 7. Obesity with body mass index of 48.4. 8. History of degenerative joint disease. RECOMMENDATIONS AND DISCUSSION: In this 73-year-old woman who presented with multiple medical problems, we will monitor the patient closely. Continue the current medications, management and symptomatic treatment. Continue with the IV diuretics, otherwise Cardizem drip. Continue with heparin. A 2D echo with Doppler noted. Follow closely with cardiology. I will repeat UA with micro. Discussed with staff. If the UA with micro continues to be abnormal, the patient might benefit from a course of antibiotics. MMODL / IJN: [id number] /
[2019-02-16 01:22] LABS: Appearance,Urine Cloudy (Clear); Bacteria,Urine Many /hpf; Bilirubin,Urine 1+ (Negative); Blood,Urine Negative (Negative); Color,Urine Dark Yellow; Glucose,Urine (UA) Negative (Negative); Hyaline Casts,Urine 80 /lpf (0-2); Ketones,Urine Negative (Negative); Leukocyte Esterase,Urine Moderate (Negative); Mucus,Urine Rare /hpf; Nitrite,Urine Negative (Negative); Protein,Urine 1+ (Negative); RBC,Urine 3 /hpf (0-5); Specific Gravity,Urine 1.013 (1.001-1.035); Squamous Epithelial Cell,Urine 3 /hpf (0-4); WBC,Urine 25 /hpf (0-5)
[2019-02-16] MEDS: DILTIAZEM 125 MG in SODIUM CHLORIDE 0.9% 100 ML IV SCH (04:48)
[2019-02-16] MEDS: PANTOPRAZOLE 40 MG TABLET PO SCH (06:24)
[2019-02-16 06:49] LABS: Basophils % (A) 0 %; Eosinophils % (A) 0 %; HCT 42.3 % (34.0-46.0); HGB 12.8 gm/dL (11.4-16.0); Hypochromasia Marked; Lymphocytes # (A) 0.6 k/uL (1.0-4.8); Lymphocytes % (A) 7 %; MCH 37.6 pg (25.0-35.0); MCHC 30.4 g/dL (31.0-37.0); MCV 123.7 fL (80.0-100.0); Mean Platelet Volume 8.5; Monocytes # (A) 0.5 k/uL (0-1.0); Monocytes % (A) 5 %; Neutrophils # (A) 7.3 k/uL (1.3-7.7); Neutrophils % (A) 84 %; Platelet Count 199 k/uL (150-450); RBC 3.41 m/uL (3.80-5.40); RDW 15.4 % (11.5-15.5); WBC 8.7 k/uL (3.8-10.6)
[2019-02-16 06:54] LABS: Macrocytosis Marked
[2019-02-16 07:00] LABS: Calcium 8.7 mg/dL (8.4-10.2); Potassium 4.3 mmol/L (3.5-5.1)
[2019-02-16] MEDS: HEPARIN SODIUM,PORCINE 5,000 UNIT/ML 1 ML VIAL IV PRN (07:03)
[2019-02-16] MEDS: FUROSEMIDE 10 MG/ML 4 ML VIAL IV SCH ×3 (09:05→22:24)
[2019-02-16] MEDS: CALCIUM CARBONATE 500 MG CHEWABLE PO SCH ×2 (09:06→22:25)
[2019-02-16] MEDS: MULTIVITAMINS, THERA 1 EACH TAB PO SCH (09:06)
[2019-02-16] MEDS: METOPROLOL TARTRATE 25 MG TAB PO SCH (09:06)
[2019-02-16] MEDS: MAGNESIUM OXIDE 400 MG TAB PO SCH (09:06)
[2019-02-16] MEDS: ASPIRIN 81 MG PO SCH (09:06)
[2019-02-16] MEDS: METOPROLOL TARTRATE 50 MG TAB PO SCH (09:22)
--- NOTE | 2019-02-16 11:58 | P.PN ---
Subjective Progress Note Date: 02/16/19 This pleasant 33-year-old female with history of obesity, LAP-BAND insertion and removal, DJD and a heart murmur. Presented to the emergency department with complaints of shortness of breath and palpitations starting about 3-4 weeks ago. She denies history of atrial fibrillation denies history of cardiomyopathy. She previously followed with Dr. Wei in the office and was last seen in 2016 and at that time echocardiogram showed a normal LV systolic function. She underwent 2-D echo with Doppler yesterday which showed a 100 severely impaired LV systolic function with ejection fraction between 30-35%, mild aortic regurgitation, mild aortic stenosis, mild mitral regurgitation, mild pulmonary hypertension and mild tricuspid regurgitation. She remains in atrial fibrillation with poorly controlled ventricular rates at times. She complains of shortness of breath and weakness. she is currently on heparin and Cardizem drip with metoprolol 25 mg by mouth twice a day. Objective - Vital Signs Vital signs: Vital Signs Temp 98.1 F 02/16/19 11:06 Pulse 92 02/16/19 11:06 Resp 18 02/16/19 11:06 BP 129/67 02/16/19 11:06 Pulse Ox 95 02/16/19 11:06 Intake & Output 02/15/19 02/16/19 02/16/19 18:59 06:59 18:59 Intake Total 1054.400 746.112 428.706 Output Total 200 Balance 1054.400 546.112 428.706 Weight 141 kg Intake: Intake, IV Titration 574.400 126.112 188.706 Amount Diltiazem 125 mg In 106.75 125 Sodium Chloride 0.9% 100 ml @ 10 MG/HR 10 mls/hr IV .[id number] [facility] Rx#: [id number] Heparin Sod,Pork in 0.45% 167.650 1.112 188.706 NaCl 25,000 unit In 0.45 % NaCl 1 250ml.bag @ 7.35 UNITS/KG/HR 10.002 mls/ hr IV .Q24H [facility] Rx#: [id number] Sodium Chloride 0.9% 1, 300 000 ml @ 60 mls/hr IV . [id number] [facility] Rx#:[id number] Oral 480 620 240 Output: Urine 200 Other: Voiding Method Bedside Commode Bedside Commode # Voids 2 - Exam PHYSICAL EXAMINATION: HEENT: Head is atraumatic, normocephalic. Pupils equal, round. Neck is supple. There is no elevated jugular venous pressure. HEART EXAMINATION: Heart sounds regular regular, S1 and S2 with a systolic murmur. CHEST EXAMINATION: Lungs reveal diminished air entry bilaterally. No chest wall tenderness is noted on palpation or with deep breathing. ABDOMEN: Soft, obese, nontender. Bowel sounds are heard. No organomegaly noted. EXTREMITIES: 2+ peripheral pulses with no evidence of peripheral edema and no calf tenderness noted. NEUROLOGIC patient is awake, alert and oriented x3. . - Labs CBC & Chem 7: 02/16/19 06:19 02/16/19 06:19 Labs: Abnormal Lab Results - Last 24 Hours (Table) 02/15/19 02/15/19 02/16/19 Range/Units 00:30 12:45 06:19 RBC 3.41 L (3.80-5.40) m/uL MCV 123.7 H (80.0-100.0) fL MCH 37.6 H (25.0-35.0) pg MCHC 30.4 L (31.0-37.0) g/dL Lymphocytes # 0.6 L (1.0-4.8) k/uL Macrocytosis Marked A BUN 31 H (7-17) mg/dL Glucose 181 H (74-99) mg/dL Urine Appearance Cloudy H (Clear) Urine Protein 1+ H (Negative) Urine Bilirubin 1+ H (Negative) Ur Leukocyte Esterase Moderate H (Negative) Urine WBC 25 H (0-5) /hpf Urine Bacteria Many H (None) /hpf Hyaline Casts 80 H (0-2) /lpf Urine Mucus Rare H (None) /hpf 02/16/19 Range/Units 06:19 RBC (3.80-5.40) m/uL MCV (80.0-100.0) fL MCH (25.0-35.0) pg MCHC (31.0-37.0) g/dL Lymphocytes # (1.0-4.8) k/uL Macrocytosis BUN 38 H (7-17) mg/dL Glucose 159 H (74-99) mg/dL Urine Appearance (Clear) Urine Protein (Negative) Urine Bilirubin (Negative) Ur Leukocyte Esterase (Negative) Urine WBC (0-5) /hpf Urine Bacteria (None) /hpf Hyaline Casts (0-2) /lpf Urine Mucus (None) /hpf Assessment and Plan Assessment: #1 new onset atrial fibrillation with rapid ventricular response, likely persistent #2 cardiomyopathy of unknown etiology could be related to atrial fibrillation #3 acute systolic congestive heart failure with pulmonary edema no evidence of peripheral edema #4 obesity Plan: From cardiology's perspective, we will increase metoprolol and add oral anticoagulation. We will discontinue IV heparin and IV Cardizem. We'll start the patient on lisinopril 2.5 mg daily. We will follow renal function, electrolytes, daily weights and intake and output. We will continue to follow the patient provide further recommendations accordingly. COURT RECORDING MONITOR note has been reviewed, I agree with a documented findings and plan of care. Patient was seen and examined.
[2019-02-16] MEDS ORDERED: LISINOPRIL 2.5 MG TAB PO SCH (12:00)
[2019-02-16] MEDS: APIXABAN 5 MG TAB PO SCH ×2 (12:39→20:36)
[2019-02-16 17:07] LABS: Folate, Serum >24.0 ng/mL
[2019-02-16] MEDS ORDERED: METOPROLOL TARTRATE 50 MG TAB PO SCH (21:00)
[2019-02-16] MEDS: ALPRAZolam 0.25 MG TAB PO PRN (22:22)
--- NOTE | 2019-02-16 23:53 | PN ---
PROGRESS NOTE DATE OF SERVICE: 02/16/2019 This 73-year-old woman who was admitted with atrial fibrillation with a fast ventricular rate also had CHF, acute exacerbation, ejection fraction found to be 30% to 35%. The most recent 2D echo was done by Cardiology, which showed ejection fraction about 35%. The patient is complaining of weakness. Patient apparently had to be eased to the ground today. No chest pain. No palpitations. Cardiology is following the patient closely. Past medical history reviewed. REVIEW OF SYSTEMS: CARDIOVASCULAR SYSTEM: As mentioned earlier. RESPIRATORY SYSTEM: As mentioned earlier. GI: As mentioned earlier. : No dysuria or retention. NERVOUS SYSTEM: No numbness, weakness. CURRENT MEDICATIONS: Reviewed. They include: 1. Tylenol p.r.n. 2. [place]hel 5 mg q.4 p.r.n. 3. Xanax 0.25 t.i.d. 4. Eliquis 5 mg p.o. b.i.d. 5. Aspirin 81 mg daily. 6. Tums 500 mg daily. 7. Lasix 40 mg IV q.8. 8. Zestril. 9. Magnesium oxide. 10.Lopressor 50 mg p.o. b.i.d. 11.Narcan. 12.Zofran. 13.Protonix 40 mg daily. 14.Restoril 15 mg at bedtime p.r.n. PHYSICAL EXAMINATION: Patient is alert oriented x3. Pulse 67, blood pressure 117/64, respiration 18, temperature 98.3, pulse ox 97% on 4 L. HEENT: Conjunctivae normal. NECK: No jugular venous distention. CARDIOVASCULAR SYSTEM: S1, S2 irregular. RESPIRATORY SYSTEM: Breath sounds diminished at the bases. Bilateral scattered rhonchi and crackles. ABDOMEN: Soft, obese, non-tender. LEGS: Minimal edema. NERVOUS SYSTEM: Diffusely weak. Wasting also present. LABS: WBC 8.7, hemoglobin 12.8, MCV 123.7. ASSESSMENT: 1. Atrial fibrillation with a fast ventricular rate, present on admission. 2. Congestive heart failure, acute exacerbation, with acute on chronic systolic dysfunction, ejection fraction 30% to 35%. 3. Macrocytosis. 4. Increased AST. 5. Generalized wasting as well as gait dysfunction. 6. Increased total bilirubin. 7. Urinary tract infection, present on admission. 8. Obesity; body mass index of 48.4. 9. History of degenerative joint disease. 10.FULL CODE. RECOMMENDATIONS AND DISCUSSION: In this 73-year-old woman who presented with multiple medical issues, we will monitor the patient closely, continue the medications, continue symptomatic treatment. Will continue the anticoagulation. Continue the Lasix. I would also recommend PT/OT evaluation and possible ECF rehab because of the patient's generalized weakness and gait dysfunction. The patient is at high risk of falls. Discussed with the family. Discussed with the patient at length, who understands and agrees. Further recommendations to follow. See orders for further details. MMODL / IJN: [id number] /
[2019-02-17] MEDS: PANTOPRAZOLE 40 MG TABLET PO SCH (05:49)
[2019-02-17 06:17] LABS: Basophils % (A) 0 %; Eosinophils % (A) 1 %; HCT 40.9 % (34.0-46.0); HGB 12.9 gm/dL (11.4-16.0); Hypochromasia Moderate; Lymphocytes # (A) 0.9 k/uL (1.0-4.8); Lymphocytes % (A) 15 %; MCH 37.8 pg (25.0-35.0); MCHC 31.5 g/dL (31.0-37.0); MCV 120.1 fL (80.0-100.0); Mean Platelet Volume 8.2; Monocytes # (A) 0.5 k/uL (0-1.0); Monocytes % (A) 8 %; Neutrophils # (A) 4.7 k/uL (1.3-7.7); Neutrophils % (A) 73 %; Platelet Count 156 k/uL (150-450); RBC 3.41 m/uL (3.80-5.40); RDW 15.7 % (11.5-15.5); WBC 6.4 k/uL (3.8-10.6)
[2019-02-17 06:25] LABS: Macrocytosis Marked
[2019-02-17 06:27] LABS: Calcium 8.8 mg/dL (8.4-10.2); Potassium 4.4 mmol/L (3.5-5.1)
[2019-02-17 10:43] LABS: Glucose,Whole Blood 136 mg/dL (75-99)
[2019-02-17] MEDS ORDERED: SODIUM CHLORIDE 0.9% 500 ML 500 ML IV ONE (11:00)
--- NOTE | 2019-02-17 11:29 | CT ---
EXAMINATION TYPE: CT brain wo con for TPA DATE OF EXAM: 02/17/2019 COMPARISON: None HISTORY: Altered mental status changes Automated exposure control for dose reduction was used. FINDINGS: Exam limited by motion artifact. No midline shift or mass effect. No obvious acute intracranial hemor rhage. Calvarium intact. Assessment for ischemia limited due to artifact and motion low-attenuation t he white matter is nonspecific but may been the basis of remote ischemia. IMPRESSION: LIMITED EXAM DUE TO MOTION ARTIFACT. NO DEFINITE ACUTE HEMORRHAGE VISUALIZED. COULD NOT EXCLUDE A HYPERDENSE RIGHT MCA SIGN AND THROMBOSIS OF THE RIGHT MCA BASED ON THIS LIMITED EXAM..
[2019-02-17 11:41] LABS: HCT 38.8 % (34.0-46.0); HGB 12.4 gm/dL (11.4-16.0); Hypochromasia Marked; MCHC 31.9 g/dL (31.0-37.0); MCV 119.4 fL (80.0-100.0); Macrocytosis Marked; Mean Platelet Volume 8.6; Platelet Count 154 k/uL (150-450); RBC 3.25 m/uL (3.80-5.40); RDW 15.6 % (11.5-15.5); WBC 6.4 k/uL (3.8-10.6)
[2019-02-17 11:43] LABS: INR 1.1 (<1.2); Partial Thromboplastin Time 28.5 sec (22.0-30.0); Prothrombin Time 11.9 sec (9.0-12.0)
[2019-02-17 11:48] VITALS: RESP 18
[2019-02-17 11:50] LABS: Albumin 3.5 g/dL (3.5-5.0); Calcium 8.7 mg/dL (8.4-10.2); Potassium 4.5 mmol/L (3.5-5.1); Total Bilirubin 1.4 mg/dL (0.2-1.3); Total Protein 6.3 g/dL (6.3-8.2)
--- NOTE | 2019-02-17 12:07 | CT ---
EXAMINATION TYPE: CODE STROKE: CTA head neck DATE OF EXAM: 02/17/2019 HISTORY: Altered mental status changes COMPARISON: CT brain 02/17/2019 Automated Exposure Control for Dose Reduction was Utilized. TECHNIQUE: CTA scan of the neck is performed with IV Contrast, patient injected with 50 mL of Isovue 370, axial images are obtained, coronal and sagittal reformatted images are reviewed. Three-D recons tructed images are created on an independent workstation and reviewed. FINDINGS: The visualized common and internal carotid arteries are patent bilaterally. No significant stenosis identified. Intracranially there appears to be normal enhancement of the vertebrobasilar system. There is normal enhancement of the left middle cerebral artery and bilateral anterior cerebral arteries. Right supervisor color paste mixing ior cerebral artery appears to originate from the anterior circulation. There appears to be within th e distal or asymmetric enhancement of the distal margin the right MCA and acute thrombus is not exclu ded. Report called to patient's nurse. Hypertrophic and degenerative changes spine. There is bilateral pleural effusions and consolidation w ithin the lungs. Atherosclerotic changes aorta. Origins of the great vessels appear to be patent. Note is made that th e carotid arteries are tortuous in appearance. There appears to be hypoplastic A1 segment of the left anterior cerebral artery. There appears to be sulcal effacement on the right with reduced anterior sulcal vascular enhancement particularly on images 25 through 32. IMPRESSION: 1. Findings suggest asymmetric or reduced enhancement of the bifurcation and distal branches of the r ight MCA. An acute thrombosis or stenosis is in the differential diagnosis and should be correlated c linically. 2. There appears to be reduced vascular enhancement within the sulci involving the right temporal and parietal lobes extending into the occipital lobe compared to the left cerebral hemisphere. Sulcal ef facement and acute ischemia in the differential diagnosis. Suspected large right-sided area of acute ischemia. Report was called immediately to the patient's nurse.
[2019-02-17 12:58] LABS: Lymphocytes # (M) 1.22 k/uL (1.0-4.8); Monocytes # (M) 0.45 k/uL (0-1.0); Neutrophils # (M) 4.74 k/uL (1.3-7.7); Neutrophils % (M) 74 %; Nucleated Red Blood Cells 0 /100 WBC (0-0); Total Cells Counted 100
--- NOTE | 2019-02-17 12:58 | DS ---
DISCHARGE SUMMARY DATE OF SERVICE: 02/17/2019. FINAL DIAGNOSES: 1. 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 2. Change in mental status, metabolic encephalopathy, multifactorial. 3. Atrial fibrillation with fast ventricular rate, present on admission. 4. Congestive heart failure acute exacerbation acute on chronic systolic dysfunction ejection fraction 30 to 35%. 5. Macrocytosis. 6. Increased AST. 7. Generalized wasting and as well as gait dysfunction. 8. Increased total bilirubin. 9. Urinary tract infection present on admission. 10.Obesity body mass index of 48.4. 11.History of degenerative joint disease. 12.FULL CODE. DISCHARGE DISPOSITION: The patient being transferred to [facility] in stable condition. Guarded prognosis. Total time taken 35 minutes. HISTORY OF PRESENT ILLNESS: This 73-year-old woman with a past medical history of multiple medical problems was admitted with atrial fibrillation with fast ventricular rate as well as congestive heart failure acute exacerbation. Patient was given diuretics as well as Cardizem to control the heart rate. IV heparin was also initiated. Cardiology saw the patient and recommended anticoagulation, but however the patient developed acute stroke involving the right MCA territory as mentioned earlier while during hospitalization, stroke code was called and the patient is being transferred to [facility] after discussion. Please refer to the stroke code notes for further details. Otherwise the patient's prognosis remains extremely guarded throughout the hospital stay. Please refer to the medication reconciliation sheet for list of medications. On exam, the patient is stuporous. Vital signs stable. Cardio system: S1, S2. Respiratory system: ntd Nervous system: Diffusely weak. MMODL / IJN: [id number] / TEGAN
[2019-02-17 13:03] LABS: Glucose,Whole Blood 131 mg/dL (75-99)
[2019-02-17] MEDS: FUROSEMIDE 10 MG/ML 4 ML VIAL IV SCH (16:44)
--- NOTE | 2019-02-17 18:19 | PN ---
PROGRESS NOTE Mrs. Sandhu is a 73-year-old female who presented with evidence of atrial fibrillation and rapid ventricular response. She had an echocardiogram revealed a moderately to severely impaired left ventricular systolic function. She was initiated on anticoagulation and switched to oral anticoagulation yesterday. Early this morning she became less responsive with left-sided weakness and underwent a CT scan that revealed right middle cerebral artery thrombosis. The patient is scheduled to be transferred to undergo mechanical revascularization. She has been on the Eliquis 5 mg twice a day. She has received Lasix 40 mg IV q.8 hours, Zestril 2.5 mg daily and metoprolol tartrate 50 mg twice a day. PHYSICAL EXAMINATION: Blood pressure 104/70 with a heart rate in the 100s. LUNGS: Clear to auscultation. HEART: Irregular, regular. S1, S2. No S3. No rub. ABDOMEN: Soft, nontender. No organomegaly. EXTREMITIES: No significant edema. Neurologically, minimal responsiveness with left-sided weakness. LAB DATA: Lab data revealed BUN and creatinine 49 and 0.76. Potassium 4.5, hemoglobin of 12.4. IMPRESSION: 1. 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 2. Atrial fibrillation. 3. Cardiomyopathy of unknown etiology. RECOMMENDATION: Patient will continue present therapy. She will be transferred to undergo her procedure and depending on her progress further recommendations will be made. MMODL / KATERINEN: [id number] /
[2019-02-17 19:36] VITALS: BP 103/79; PULSE 112; TEMP 98.4
== END 2019-02-17 13:11 | disposition short-term general hospital (02) | DRG 291 ==
LOC: EC 16:00 → 3SCARD 19:03
PROVIDERS: ADMIT Hospitalist; ATTEND Hospitalist
DX: I50.23 Acute on chronic systolic (congestive) heart failure (principal); G93.41 Metabolic encephalopathy; I63.411 Cerebral infarction due to embolism of right middle cerebral artery; I42.9 Cardiomyopathy, unspecified; G81.94 Hemiplegia, unspecified affecting left nondominant side; N39.0 Urinary tract infection, site not specified; Z68.42 Body mass index [BMI] 45.0-49.9, adult; D75.89 Other specified diseases of blood and blood-forming organs; E66.9 Obesity, unspecified; E83.42 Hypomagnesemia; I27.20 Pulmonary hypertension, unspecified; I48.91 Unspecified atrial fibrillation; R29.722 NIHSS score 22; Z79.01 Long term (current) use of anticoagulants; Z79.82 Long term (current) use of aspirin; Z79.899 Other long term (current) drug therapy; Z91.14 Patient's other noncompliance with medication regimen; Z91.19 Patient's noncompliance with other medical treatment and regimen; M19.90 Unspecified osteoarthritis, unspecified site; I08.3 Combined rheumatic disorders of mitral, aortic and tricuspid valves
CPT/HCPCS: 36415; 70450; 70496; 70498; 71045; 71046; 80048; 80053; 81001; 82607; 82746; 82747; 83735; 84443; 84484; 85025; 85610; 85730; 87077; 87086; 87186; 93005; 93306; 94760; 96365; 96366; 96368; 96376; 99285